=== PATIENT | female | born 1965 | race African-American/Black ===

== ENCOUNTER 2021-09-11 09:34 | Emergency (ER) | payer MEDICARE, SELFPAY ==
[2021-09-11] MEDS ORDERED: predniSONE 20 MG TAB ONE (10:23)
== END 2021-09-11 11:42 | disposition home or self-care (01) ==
LOC: ERS 09:34
DX: J45.901 Unspecified asthma with (acute) exacerbation (principal); E03.9 Hypothyroidism, unspecified
CPT/HCPCS: 71045; 94640; J7512; J7620